=== PATIENT | male | born 1990 | race Caucasian/White ===

== ENCOUNTER 2020-10-01 16:29 | Inpatient (IN) | payer OTHER ==
[2020-10-01 17:03] VITALS: BMI 39.9
[2020-10-01] MEDS ORDERED: IBUPROFEN 400 MG TABLET (FP) PO PRN (17:50)
[2020-10-01] MEDS ORDERED: BISMUTH SUBSALICYLATE 524 MG/30 ML UD PO PRN (17:50)
[2020-10-01] MEDS ORDERED: MAGNESIUM HYDROX 2400MG/30ML ORAL SUSPENSION 30 ML CUP PO PRN (17:50)
[2020-10-01] MEDS ORDERED: ACETAMINOPHEN 325 MG TABLET (FP) PO PRN ×2 (17:50)
[2020-10-01] MEDS ORDERED: MENTHOL/PHENOL 1 EACH UD MM PRN (17:50)
[2020-10-01] MEDS ORDERED: MAGNESIUM CITRATE 300 ML BOTTLE PO PRN (17:50)
[2020-10-01] MEDS ORDERED: MAG HYDROX/AL HYDROX/SIMETH 30 ML UNIT-DOSE CUP PO PRN (17:50)
[2020-10-01] MEDS: chlordiazePOXIDE HCL 25 MG CAPSULE PO PRN (18:51)
[2020-10-01] MEDS: ONDANSETRON *ODT* 4 MG TABLET SL PRN (20:44)
[2020-10-01] MEDS: MELATONIN 5 MG TABLETS PO SCH (22:12)
[2020-10-01] MEDS: THIAMINE HCL 100 MG TABLET (FP) PO SCH (22:12)
[2020-10-01] MEDS: chlordiazePOXIDE HCL 25 MG CAPSULE PO SCH (22:13)
[2020-10-02] MEDS: chlordiazePOXIDE HCL 25 MG CAPSULE PO PRN (00:39)
[2020-10-02] MEDS: METHOCARBAMOL 500 MG TABLET PO PRN ×2 (00:39→10:12)
[2020-10-02] MEDS: chlordiazePOXIDE HCL 25 MG CAPSULE PO SCH ×4 (05:30→22:35)
[2020-10-02] MEDS: PRENATAL VITAMINS W/ FOLIC ACID TABLET (FP) PO SCH (10:12)
[2020-10-02] MEDS: ONDANSETRON *ODT* 4 MG TABLET SL PRN ×2 (10:12→18:02)
[2020-10-02 11:06] LABS: HEMOGLOBIN 13.9 GM/dL (11.7-16.9); MEAN CELL VOLUME 93.9 fl (80-96); MEAN PLT VOLUME 8.1 fl (7.5-11.1); PLATELET COUNT 258 K/MM3 (134-434); RBC 4.36 M/mm3 (4.00-5.60); RDW 13.7 % (11.9-15.9)
[2020-10-02 11:11] LABS: ALBUMIN 3.4 g/dl (3.4-5.0); CALCIUM 8.7 mg/dL (8.5-10.1)
[2020-10-02 11:12] LABS: BLOOD UREA NITROGEN 7.5 mg/dL (7-18)
[2020-10-02 11:15] LABS: CREATININE 0.9 mg/dL (0.55-1.3)
[2020-10-02 11:16] LABS: BILIRUBIN,TOTAL 1.1 mg/dL (0.2-1); TOT PROT 6.4 g/dl (6.4-8.2)
[2020-10-02] MEDS: traZODone HCL 100 MG TABLET (FP) PO SCH (22:34)
[2020-10-02] MEDS: ESCITALOPRAM OXALATE 20 MG TABLET PO SCH (22:34)
[2020-10-02] MEDS: THIAMINE HCL 100 MG TABLET (FP) PO SCH (22:34)
[2020-10-02] MEDS: MELATONIN 5 MG TABLETS PO SCH (22:36)
[2020-10-03] MEDS: chlordiazePOXIDE HCL 25 MG CAPSULE PO SCH ×4 (06:03→22:21)
[2020-10-03] MEDS: PRENATAL VITAMINS W/ FOLIC ACID TABLET (FP) PO SCH (10:21)
[2020-10-03] MEDS: ONDANSETRON *ODT* 4 MG TABLET SL PRN (10:21)
[2020-10-03] MEDS: ESCITALOPRAM OXALATE 20 MG TABLET PO SCH (22:21)
[2020-10-03] MEDS: traZODone HCL 100 MG TABLET (FP) PO SCH (22:21)
[2020-10-03] MEDS: MELATONIN 5 MG TABLETS PO SCH (22:22)
[2020-10-03] MEDS: THIAMINE HCL 100 MG TABLET (FP) PO SCH (22:22)
[2020-10-04] MEDS ORDERED: chlordiazePOXIDE HCL 10 MG CAPSULE PO PRN
[2020-10-04] MEDS: chlordiazePOXIDE HCL 10 MG CAPSULE PO SCH ×4 (06:35→22:39)
[2020-10-04] MEDS: PRENATAL VITAMINS W/ FOLIC ACID TABLET (FP) PO SCH (10:13)
[2020-10-04] MEDS: hydrOXYzine PAMOATE 25 MG CAPSULE (FP) PO PRN ×3 (10:13→22:39)
[2020-10-04] MEDS: METHOCARBAMOL 500 MG TABLET PO PRN ×2 (10:13→22:38)
[2020-10-04] MEDS: MELATONIN 5 MG TABLETS PO SCH (22:38)
[2020-10-04] MEDS: traZODone HCL 100 MG TABLET (FP) PO SCH (22:39)
[2020-10-04] MEDS: THIAMINE HCL 100 MG TABLET (FP) PO SCH (22:39)
[2020-10-04] MEDS: ESCITALOPRAM OXALATE 20 MG TABLET PO SCH (22:39)
[2020-10-05] MEDS ORDERED: chlordiazePOXIDE HCL 10 MG CAPSULE PO SCH (05:00)
[2020-10-05 08:06] LABS: SARS-CoV-2 NAA Not Detected (Not Detected)
[2020-10-05 09:39] VITALS: BP 107/65; PULSE 96; TEMP 97.8
[2020-10-05] MEDS: METHOCARBAMOL 500 MG TABLET PO PRN (10:10)
[2020-10-05] MEDS: hydrOXYzine PAMOATE 25 MG CAPSULE (FP) PO PRN (10:10)
[2020-10-05] MEDS: PRENATAL VITAMINS W/ FOLIC ACID TABLET (FP) PO SCH (10:10)
[2020-10-06] MEDS ORDERED: chlordiazePOXIDE HCL 10 MG CAPSULE PO ONE (05:00)
== END 2020-10-05 12:10 | disposition home or self-care (01) | DRG 775 ==
LOC: YASAS 16:29 → Y6N 17:55
PROVIDERS: ADMIT Allergy & Immunology; ATTEND Allergy & Immunology
PROC: HZ2ZZZZ Detoxification Services for Substance Abuse Treatment (ICD-10-PCS; principal; 2020-10-01)
DX: F10.230 Alcohol dependence with withdrawal, uncomplicated (principal); F19.24 Other psychoactive substance dependence with psychoactive substance-induced mood disorder; F41.0 Panic disorder [episodic paroxysmal anxiety]; F32.9 Major depressive disorder, single episode, unspecified; G47.00 Insomnia, unspecified; K21.9 Gastro-esophageal reflux disease without esophagitis; E66.9 Obesity, unspecified; M54.5 Low back pain; Z68.39 Body mass index [BMI] 39.0-39.9, adult
CPT/HCPCS: 36415; 80053; 85027; 86780; 93005; 93010; C9803; Q0162; U0003; U0005